=== PATIENT | male | born 1965 | race Caucasian/White ===

== ENCOUNTER 2018-06-02 09:08 | Emergency (ER) | payer OTHER ==
[~2018-06-02] VITALS: Ht 177.8 cm; Wt 102.5 kg
[~2018-06-02 09:08] MED LIST: HYDACE5325 PO; NAPR500 PO
[2018-06-02] MEDS ORDERED: ZESTORETIC 20-251 EA PO (09:29)
[2018-06-02] MEDS ORDERED: Lovastatin20 MG PO (09:29)
[2018-06-02] MEDS ORDERED: CYCL10 PO (10:27)
== END 2018-06-02 11:00 | disposition home or self-care (01) ==
LOC: ER 09:08
DX: M25.552 Pain in left hip (principal); M54.5 Low back pain; F17.210 Nicotine dependence, cigarettes, uncomplicated; Z79.899 Other long term (current) drug therapy
CPT/HCPCS: 72100; 73502; 96372; 99284-25; J1885

== ENCOUNTER 2018-07-07 12:01 | Day surgery (SDC) | payer OTHER ==
[~2018-07-07] VITALS: Ht 177.8 cm; Wt 98.2 kg
[~2018-07-07 12:01] MED LIST changes: +CYCL10 PO; +Lovastatin20 MG PO; +ZESTORETIC 20-251 EA PO
== END 2018-07-07 14:35 | disposition home or self-care (01) ==
LOC: ORSCSDS 12:01
PROVIDERS: Surgery
PROC: 0DBM8ZX Excision of Descending Colon, Via Natural or Artificial Opening Endoscopic, Diagnostic (ICD-10-PCS; principal; 2018-07-07 13:30)
DX: Z12.11 Encounter for screening for malignant neoplasm of colon (principal); K63.5 Polyp of colon; I10 Essential (primary) hypertension; E78.2 Mixed hyperlipidemia; K21.9 Gastro-esophageal reflux disease without esophagitis; F17.210 Nicotine dependence, cigarettes, uncomplicated; Z79.899 Other long term (current) drug therapy
CPT/HCPCS: 88305; J7120